=== PATIENT | female | born 1975 | race Caucasian/White ===

== ENCOUNTER 2024-05-31 19:35 | Emergency (ER) | payer OTHER ==
[~2024-05-31] VITALS: Ht 167.6 cm; Wt 75.1 kg
[2024-05-31 20:09] LABS: HEMATOCRIT 37.7 % (35.0-50.0); MCH 32.3 (27-36); MCHC 34.4 g/dl (30-36); MCV 93.8 fl (81-99); PLATELET COUNT 203 K/uL (140-440); RBC 4.02 M/ul (4.3-5.7); RDW 13.7 (10.5-15.0)
[2024-05-31] MEDS ORDERED: ondansetron HCL 4 MG/2 ML VIAL IV ONE (20:15)
[2024-05-31] MEDS ORDERED: KETOROLAC TROMETHAMINE 30 MG/ML VIAL IV ONE (20:15)
[2024-05-31] MEDS ORDERED: LACTATED RINGER'S 1,000 ML IV ONE (20:15)
[2024-05-31 20:19] LABS: ALBUMIN 3.1 g/dL (3.4-5.0); ALBUMIN/GLOBULIN RATIO 0.91 (1.1-2.4); ANION GAP 9.7 (7-21); BILIRUBIN, TOTAL 0.2 ng/dL (0.2-1.0); BUN/CREATININE RATIO 10.86 (6.0-28.6); CALCIUM 9.3 mg/dL (8.5-10.1); CREATININE, SERUM 0.92 mg/dL (0.55-1.02); MAGNESIUM 1.8 mg/dL (1.8-2.4); PHOSPHORUS, INORGANIC 3.7 mg/dL (2.5-4.9); POTASSIUM 3.7 mmol/L (3.5-5.1); PROTEIN, TOTAL 6.5 g/dL (6.4-8.2)
[2024-05-31 20:29] LABS: BANDS, MANUAL DIFF 40; LYMPHOCYTES, MANUAL DIFF 9; MONOCYTES, MANUAL DIFF 10; NEUTROPHILS, MANUAL DIFF 41
[2024-05-31] MEDS ORDERED: FAMOTIDINE 20 MG/ 2 ML VIAL IV ONE (20:30)
[2024-05-31 21:15] LABS: BILIRUBIN, URINE NEGATIVE (negative); BLOOD/HGB, URINE SMALL (Negative); KETONE, URINE NEGATIVE (Negative); LEUK ESTERASE, URINE NEGATIVE (negative); NITRITE, URINE NEGATIVE (negative); PH, URINE 5.5 (5-7)
[2024-05-31 21:31] LABS: EPITHELIAL CELLS, URINE SQUAMOUS 3+ /lpf (0-1+)
[2024-05-31 21:32] LABS: BACTERIA, URINE 1+ /hpf (negative); CASTS, URINE NONE SEEN \\lpf; COLLECTION TYPE, URINE CLEAN CATCH; CRYSTALS, URINE NONE SEEN (0-1+); REFLEX CULTURE, URINE No (No)
[2024-05-31] MEDS ORDERED: hydrOXYzine pamoate 50 MG HOME.PACK PO ONE (22:15)
[2024-05-31] MEDS ORDERED: HYDROXYZINE HCL25 MG PO (22:15)
[2024-05-31] MEDS ORDERED: AZITHROMYCIN 250 MG TAB PO ONE (22:15)
[2024-05-31 22:32] VITALS: BP 110/58
[2024-06-01] MEDS ORDERED: ONDANSETRON ODT4 MG SL (11:23)
[2024-06-01] MEDS ORDERED: LOMOTIL TABLET1 EACH PO (11:23)
[2024-06-01] MEDS ORDERED: KETOROLAC TROME10 MG PO (11:23)
[2024-06-01] MEDS ORDERED: CEFDINIR300 MG PO (12:19)
[2024-06-01] MEDS ORDERED: PERCOCET 5-3251 EACH PO (12:19)
== END 2024-05-31 22:34 | disposition home or self-care (01) ==
LOC: ED 19:35
PROVIDERS: Internal Medicine
DX: R19.7 Diarrhea, unspecified (principal)
CPT/HCPCS: 36415; 80053; 81001; 83690; 83735; 84100; 85025; 87045; 87046; 96361; 96374; 96375; 99284-25; J1885; J2405; J7121

== ENCOUNTER 2024-06-01 09:07 | Emergency (ER) | payer OTHER ==
[~2024-06-01] VITALS: Ht 167.6 cm; Wt 76.3 kg
[~2024-06-01 09:07] MED LIST: HYDROXYZINE HCL25 MG PO
--- OUTSIDE RECORDS SUMMARY | 2024-06-01 09:14 | XMS ---
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 E.D. VISIT COUNT (12 MO.) 2 ZAHRA Doyle TOTAL 2 NOTE: Visits indicate total known visits. ED/UCC VISIT TRACKING (12 MO.) 06/01/2024 09:08 [facility] [place] TYPE: Emergency COMPLAINT: - FLU SYMPTOMS 05/31/2024 19:36 [facility] [place] TYPE: Emergency COMPLAINT: - FLU SYMPTOMS INPATIENT VISIT TRACKING (12 MO.) No inpatient visits to display in this time frame [email or web address]
[2024-06-01] MEDS ORDERED: KETOROLAC TROMETHAMINE 30 MG/ML VIAL IV ONE (09:30)
[2024-06-01] MEDS ORDERED: SODIUM CHLORIDE 0.9% 1,000 ML IV PRN (09:30)
[2024-06-01] MEDS ORDERED: ondansetron HCL 4 MG/2 ML VIAL IV ONE ×2 (09:30→11:30)
[2024-06-01 10:35] LABS: INFLUENZA B NAA NEGATIVE (NEGATIVE); RESPIRATORY SYNCYTIAL VIR NAA NEGATIVE (NEGATIVE)
[2024-06-01 10:48] LABS: BILIRUBIN, URINE NEGATIVE (negative); BLOOD/HGB, URINE SMALL (Negative); KETONE, URINE NEGATIVE (Negative); LEUK ESTERASE, URINE NEGATIVE (negative); NITRITE, URINE NEGATIVE (negative)
[2024-06-01 10:57] LABS: BACTERIA, URINE 2+ /hpf (negative); EPITHELIAL CELLS, URINE SQUAMOUS 3+ /lpf (0-1+)
[2024-06-01 10:58] LABS: CASTS, URINE NONE SEEN \\lpf; COLLECTION TYPE, URINE CLEAN CATCH; CRYSTALS, URINE NONE SEEN (0-1+); RED BLOOD CELLS, URINE 0-1 /hpf (0-5); REFLEX CULTURE, URINE No (No)
[2024-06-01] MEDS ORDERED: KETOROLAC TROME10 MG PO (11:23)
[2024-06-01] MEDS ORDERED: LOMOTIL TABLET1 EACH PO (11:23)
[2024-06-01] MEDS ORDERED: ONDANSETRON ODT4 MG SL (11:23)
[2024-06-01] MEDS ORDERED: HYDROmorphone HCL 1 MG/ML SYR IV ONE (11:45)
[2024-06-01] MEDS ORDERED: PERCOCET 5-3251 EACH PO (12:19)
[2024-06-01] MEDS ORDERED: CEFDINIR300 MG PO (12:19)
[2024-06-01] MEDS ORDERED: CEFTRIAXONE/SODIUM CHLORIDE 1 GM/100 ML PIGGYBACK IV ONE (12:30)
[2024-06-01 13:02] VITALS: BP 112/65
== END 2024-06-01 13:02 | disposition home or self-care (01) ==
LOC: ED 09:07
PROVIDERS: Emergency Medicine
DX: K52.89 Other specified noninfective gastroenteritis and colitis (principal); N12 Tubulo-interstitial nephritis, not specified as acute or chronic
CPT/HCPCS: 74177; 81001; 87502; 96361; 96375; 96376; 99284-25; J0696; J1885; J2405; J7030; Q9967; U0002